=== PATIENT | male | born 1985 | race Caucasian/White ===

== ENCOUNTER 2017-04-07 17:12 | Emergency (ER) | payer OTHER ==
[~2017-04-07] VITALS: Ht 185.4 cm; Wt 71.7 kg
[~2017-04-07 17:12] MED LIST: CYCL10 PO; Ultram50 MG PO; Veetids 500500 MG PO
[2017-04-07] MEDS ORDERED: Augmentin 875-1 EACH PO (18:32)
== END 2017-04-07 18:51 | disposition home or self-care (01) ==
LOC: ER 17:12
DX: S01.85XA Open bite of other part of head, initial encounter (principal); Z23 Encounter for immunization; F17.200 Nicotine dependence, unspecified, uncomplicated; W54.0XXA Bitten by dog, initial encounter
CPT/HCPCS: 90471; 90714; 99283